=== PATIENT | female | born 1970 | race Caucasian/White ===

== ENCOUNTER 2019-12-20 20:57 | Emergency (ER) | payer MEDICAID ==
[~2019-12-20] VITALS: Ht 165.1 cm; Wt 87.0 kg
[2019-12-20 21:38] LABS: URINE HCG NEGATIVE (NEG)
[2019-12-20 21:42] LABS: CLARITY,URINE CLOUDY (Clear); COLOR,URINE YELLOW (Yellow); GLUCOSE, URINE NEGATIVE (Neg); KETONES,URINE NEGATIVE (Neg); LEUKOCYTE ESTERASE ,URINE LARGE (Neg); NITRITES, URINE POSITIVE (Neg); OCCULT BLOOD,URINE LARGE (Neg); PROTEIN,URINE TRACE mg/dl (Neg)
[2019-12-20 21:49] LABS: UA COLLECTION TYPE CLN CATCH MIDSTREAM
[2019-12-20 21:50] LABS: BACTERIA,URINE 3+ /HPF (Neg); RBC,URINE TNTC /HPF (0-2); SQUAMOUS EPITHELIAL CELL,UR FEW /LPF (FEW); WBC,URINE 50-100 /HPF (0-4)
[2019-12-20 22:27] LABS: BASOPHILS # (AUTO) 0.1 X10'3 (0-0.2); BASOPHILS % (AUTO) 0.4 % (0-1); EOSINOPHILS # (AUTO) 0.1 X10'3 (0-0.9); EOSINOPHILS % (AUTO) 0.7 % (0-6); HEMOGLOBIN 11.2 g/dl (12.0-16.0); LYMPHOCYTES % (AUTO) 11.9 % (21-51); MEAN CORPUSCULAR HEMOGLOBIN 27.3 PG (27.0-31.0); MEAN CORPUSCULAR VOLUME 82.6 FL (78-98); MEAN PLATELET VOLUME 8.8 FL (7.4-10.4); MONOCYTES # (AUTO) 1.5 X10'3 (0-0.9); MONOCYTES % (AUTO) 8.8 % (2-12); NEUTROPHILS # (AUTO) 13.4 X10'3 (1.8-7.7); NEUTROPHILS % (AUTO) 78.2 % (42-75); PLATELET COUNT 387 X10'3 (140-440); RED BLOOD COUNT 4.11 X10'6 (4.20-5.60); RED CELL DISTRIBUTION WIDTH 14.3 % (11.5-14.5); WHITE BLOOD COUNT 17.2 X10'3 (4.5-11.0)
[2019-12-20 22:41] LABS: ALANINE AMINOTRANSFERASE 17 U/L (12-78); ALBUMIN 2.7 G/DL (3.4-5.0); ALBUMIN/GLOBULIN RATIO 0.6 (1.1-1.5); ALKALINE PHOSPHATASE 89 IU/L (46-116); ANION GAP 7 (8-16); ASPARTATE AMINO TRANSFERASE 7 U/L (10-37); BILIRUBIN,TOTAL 0.4 MG/DL (0.1-1.0); BLOOD UREA NITROGEN 8 MG/DL (7-18); BUN/CREATININE RATIO 8.2 (6.6-38.0); CALCIUM 8.3 MG/DL (8.5-10.1); CHLORIDE 101 MMOL/L (99-107); CREATININE 0.97 MG/DL (0.40-0.90); GLUCOSE 116 MG/DL (70-104); LIPASE 61 U/L (73-393); POTASSIUM 3.6 MMOL/L (3.5-5.1); SODIUM 136 MMOL/L (135-145); TOTAL CARBON DIOXIDE 28.5 MMOL/L (24-32); TOTAL PROTEIN 7.2 G/DL (6.4-8.2); eGFR 62 ML/MIN
[2019-12-20] MEDS ORDERED: CefTRIAXone/D5W-Rocephin 1gm 50 ML IV ONE (23:05)
[2019-12-20] MEDS ORDERED: normal saline 1000ML IV soln IVB ONE (23:05)
[2019-12-20 23:18] LABS: ETHANOL < 0.010 GM/DL (0.0-0.010)
[2019-12-20] MEDS: morphine 2 MG/ML inj. syringe IV PRN (23:22)
[2019-12-20] MEDS ORDERED: NAPR-56 PO (23:28)
[2019-12-20] MEDS ORDERED: CYCL-1 PO (23:28)
[2019-12-20 23:35] LABS: URINE AMPHETAMINE SCREEN POSITIVE (Neg); URINE BARBITUATE SCREEN NEGATIVE (Neg); URINE BENZODIAZEPINES SCREEN NEGATIVE (Neg); URINE CANNABINOID SCREEN NEGATIVE (Neg); URINE COCAINE SCREEN NEGATIVE (Neg); URINE METHADONE SCREEN NEGATIVE (Neg); URINE OPIATE SCREEN NEGATIVE (Neg); URINE PHENCYCLIDINE SCREEN NEGATIVE (Neg)
[2019-12-21] MEDS: morphine 2 MG/ML inj. syringe IV PRN ×2 (00:05→01:00)
[2019-12-21] MEDS ORDERED: LORazepam 2 mg/ml vial IV ONE (00:45)
[2019-12-21] MEDS ORDERED: ketorolac tromethamine 15mg/ml inj. IV ONE (00:45)
[2019-12-21] MEDS ORDERED: CEPH-572 PO (00:46)
[2019-12-21 01:13] VITALS: BP 112/77
== END 2019-12-21 01:09 | disposition home or self-care (01) ==
LOC: ER 20:58
DX: N12 Tubulo-interstitial nephritis, not specified as acute or chronic (principal); F15.10 Other stimulant abuse, uncomplicated; R10.31 Right lower quadrant pain; R05 Cough; F17.200 Nicotine dependence, unspecified, uncomplicated; Z98.890 Other specified postprocedural states; Z79.2 Long term (current) use of antibiotics; Z79.899 Other long term (current) drug therapy
CPT/HCPCS: 36415; 74176; 80053; 80305; 80320; 81001; 81025; 83605; 83690; 85025; 87040; 87077; 87088; 87186; 96365; 96366; 96375; 96376; 99285; J0696; J1885; J2060; J2270; J7030

== ENCOUNTER 2020-03-21 12:29 | Emergency (ER) | payer MEDICAID ==
[~2020-03-21] VITALS: Ht 165.1 cm; Wt 85.0 kg
[~2020-03-21 12:29] MED LIST: CYCL-1 PO
[2020-03-21 12:36] VITALS: BP 147/82
--- NOTE | 2020-03-21 13:16 | NUR ---
Patient seen and assessed by provider.
== END 2020-03-21 13:16 | disposition home or self-care (01) ==
LOC: ER 12:29
DX: R00.0 Tachycardia, unspecified (principal); F17.200 Nicotine dependence, unspecified, uncomplicated; F15.90 Other stimulant use, unspecified, uncomplicated; Z98.890 Other specified postprocedural states
CPT/HCPCS: 99281

== ENCOUNTER 2020-04-09 14:54 | Emergency (ER) | payer MEDICAID ==
[~2020-04-09] VITALS: Ht 165.1 cm; Wt 90.9 kg
--- NOTE | 2020-04-09 15:38 | NUR ---
HUMBERTO Bojorquez at bedside for evaluation of patient.
[2020-04-09] MEDS ORDERED: ketorolac trometh inj. 60 MG/2 ML VIAL IM STA (15:41)
[2020-04-09] MEDS ORDERED: LIDOcaine 5% patch TP STA (15:53)
[2020-04-09] MEDS ORDERED: LIDO1ADH TOP (16:08)
[2020-04-09 16:25] VITALS: BP 136/76
== END 2020-04-09 16:27 | disposition home or self-care (01) ==
LOC: ER 14:55
DX: S39.012A Strain of muscle, fascia and tendon of lower back, initial encounter (principal); G35 Multiple sclerosis; F15.90 Other stimulant use, unspecified, uncomplicated; G89.29 Other chronic pain; Z88.7 Allergy status to serum and vaccine; Z79.899 Other long term (current) drug therapy; Z90.721 Acquired absence of ovaries, unilateral; X58.XXXA Exposure to other specified factors, initial encounter; Y93.89 Activity, other specified; Y92.89 Other specified places as the place of occurrence of the external cause; Y99.8 Other external cause status
CPT/HCPCS: 96372; 99283; J1885

== ENCOUNTER 2021-04-21 17:55 | Emergency (ER) | payer MEDICAID ==
[~2021-04-21] VITALS: Ht 165.1 cm; Wt 82.0 kg
[~2021-04-21 17:55] MED LIST changes: +LIDO1ADH TOP
[2021-04-21 18:55] LABS: BASOPHILS % (AUTO) 0.4 % (0-1); EOSINOPHILS # (AUTO) 0.3 X10'3 (0-0.9); EOSINOPHILS % (AUTO) 2.5 % (0-6); HEMATOCRIT 36.7 % (35.0-45.0); HEMOGLOBIN 11.6 g/dl (12.0-16.0); LYMPHOCYTES # (AUTO) 1.2 X10'3 (1.1-4.8); LYMPHOCYTES % (AUTO) 11.1 % (21-51); MEAN CORPUSCULAR HEMOGLOBIN 24.1 PG (27.0-31.0); MEAN CORPUSCULAR HGB CONC 31.7 g/dL (33.0-36.5); MEAN CORPUSCULAR VOLUME 75.8 FL (78-98); MEAN PLATELET VOLUME 9.8 FL (7.4-10.4); MONOCYTES # (AUTO) 0.8 X10'3 (0-0.9); MONOCYTES % (AUTO) 7.8 % (2-12); NEUTROPHILS # (AUTO) 8.5 X10'3 (1.8-7.7); NEUTROPHILS % (AUTO) 78.2 % (42-75); PLATELET COUNT 241 X10'3 (140-440); RED BLOOD COUNT 4.83 X10'6 (4.20-5.60); RED CELL DISTRIBUTION WIDTH 17.3 % (11.5-14.5); WHITE BLOOD COUNT 10.9 X10'3 (4.5-11.0)
[2021-04-21 19:06] LABS: ALANINE AMINOTRANSFERASE 28 U/L (12-78); ALBUMIN 3.3 G/DL (3.4-5.0); ALKALINE PHOSPHATASE 97 IU/L (46-116); ANION GAP 8 (8-16); ASPARTATE AMINO TRANSFERASE 16 U/L (10-37); BILIRUBIN,TOTAL 0.3 MG/DL (0.1-1.0); BLOOD UREA NITROGEN 9 MG/DL (7-18); BUN/CREATININE RATIO 10.5 (6.6-38.0); CALCIUM 9.1 MG/DL (8.5-10.1); CHLORIDE 103 MMOL/L (99-107); CREATININE 0.86 MG/DL (0.40-0.90); GLUCOSE 102 MG/DL (70-104); POTASSIUM 4.4 MMOL/L (3.5-5.1); SODIUM 140 MMOL/L (135-145); TOTAL CARBON DIOXIDE 28.6 MMOL/L (24-32); TOTAL PROTEIN 6.7 G/DL (6.4-8.2); eGFR 70 ML/MIN
[2021-04-21 19:07] LABS: CLARITY,URINE SLIGHTLY CLOUDY (Clear); GLUCOSE, URINE NEGATIVE (Neg); KETONES,URINE NEGATIVE (Neg); LEUKOCYTE ESTERASE ,URINE MODERATE (Neg); NITRITES, URINE NEGATIVE (Neg); OCCULT BLOOD,URINE NEGATIVE (Neg); PROTEIN,URINE NEGATIVE (Neg); UROBILINOGEN,URINE 0.2 E.U/dL (0.2-1.0)
[2021-04-21 19:08] LABS: COLOR,URINE STRAW (Yellow); UA COLLECTION TYPE CLN CATCH MIDSTREAM
[2021-04-21 19:24] VITALS: BP 114/61
[2021-04-21] MEDS ORDERED: ketorolac trometh. 30mg/ml inj. IM ONE (19:25)
[2021-04-21 19:34] LABS: BACTERIA,URINE 1+ /HPF (Neg); MUCUS STRANDS FEW /LPF (Neg); RBC,URINE NONE SEEN /HPF (0-2); SQUAMOUS EPITHELIAL CELL,UR MANY /LPF (FEW)
[2021-04-21 19:35] LABS: YEAST FEW /HPF (NEGATIVE)
[2021-04-21] MEDS ORDERED: traMADol 50MG tablet PO ONE (20:15)
[2021-04-21] MEDS ORDERED: TRAM50TA2 PO (20:29)
[2021-04-21] MEDS ORDERED: CYCL-394 PO (20:31)
[2021-04-21] MEDS ORDERED: IBUP-1985 PO (20:31)
== END 2021-04-21 20:39 | disposition home or self-care (01) ==
LOC: ER 17:56
DX: S29.012A Strain of muscle and tendon of back wall of thorax, initial encounter (principal); X58.XXXA Exposure to other specified factors, initial encounter; Y93.89 Activity, other specified; Y92.9 Unspecified place or not applicable; Y99.8 Other external cause status
CPT/HCPCS: 36415; 80053; 81001; 85025; 87491; 87591; 96372; 99283; J1885